=== PATIENT | female | born 1965 | race Caucasian/White ===

== ENCOUNTER 2024-05-31 10:49 | Emergency (ER) | payer MEDICARE, MEDICAID, SELFPAY ==
[2024-05-31 10:50] VITALS: BMI 29.5
[2024-05-31 11:09] VITALS: BP 118/76; PULSE 62; RESP 16; TEMP 36.7; O2SAT 95
--- NOTE | 2024-05-31 11:24 | PD.EDADULT ---
ED General RME/HPI General Chief complaint: Flu Like Symptoms Stated complaint: BAD COUGH CAUSING PRESSURE IN BLADDER, INCONT Time Seen by Provider: 05/31/24 11:06 Source: patient Arrival date/time: 05/31/24 10:49 59-year-old female with no known medical history presents to the emergency room with a chief complaint of urinary incontinence. Patient states that when she coughs she will urinate herself. Patient denies any abdominal pain. Mode of arrival: ambulatory Limitations: no limitations Related Data Home Medications ?Medication ?Instructions ?Recorded ?Confirmed olanzapine 7.5 mg tablet (Zyprexa) 7.5 mg PO HS #0 tabs 09/09/16 08/08/20 aripiprazole 2 mg tablet 5 mg PO QDAY 05/22/20 08/08/20 esomeprazole magnesium 40 mg 40 mg PO QDAY 05/22/20 08/08/20 capsule,delayed release Previous Rx's ?Medication ?Instructions ?Recorded ibuprofen 800 mg tablet 800 mg PO TID PRN pain #30 tabs 06/12/20 Allergies Allergy/AdvReac Type Severity Reaction Status Date / Time amoxicillin Allergy Severe SWELLING/RA Verified 05/31/24 10:53 SH azithromycin Allergy Severe SWELLING Verified 05/31/24 10:53 clavulanic acid Allergy Severe SWELLING/RA Verified 05/31/24 10:53 Past Medical History Past Medical History NEUROLOGIC: Negative Neurological Disorders CARDIAC: Negative Cardiac Disorders or Congestive Heart Failure RESPIRATORY: Positive Chronic Obstructive Pulmonary Disease (COPD); Negative Asthma GASTROINTESTINAL: Positive Gastrointestinal Disorders and Gastroesophageal Reflux Disease GENITOURINARY: Negative Genitourinary Disorders or Renal Disease MUSCULOSKELETAL: Positive Fractures ENT: Positive Cataracts ENDOCRINE: Positive Diabetes Mellitus Type 2 (no meds diet controled); Negative Endocrine Disorders or Diabetes Mellitus Type 1 HEMATOLOGIC: Negative Blood Disorders, Anemia or Sickle Cell Disease PSYCHO/SOCIAL: Positive Schizophrenia, Bipolar Disorder, Depression and Anxiety OTHER HISTORY: Positive Chicken Pox and Measles; Negative Autoimmune Disease or Shingles Family History FAMILY HISTORY: Positive Family Cancer and Family Surgery; Negative Family Psychiatric Problems, Family Respiratory Disorders, Family Cardiac Disorders, Family Gastrointestinal Problems or Family Anesthesia Reaction Surgical History SURGICAL: Positive Tubal Ligation Social History SMOKING STATUS: Current every day smoker SUBSTANCE USE: does not use ED Exam General Limitations: Present no limitations General appearance: Present alert and in no apparent distress Head Head exam: Present atraumatic Eye Eye exam: Present normal appearance, PERRL and EOMI ENT ENT exam: Present normal exam, normal oropharynx and mucous membranes moist Neck Neck exam: Present normal inspection, full ROM and trachea midline Chest Chest inspection: Present normal inspection and symmetric chest wall rise Respiratory Respiratory exam: Present normal lung sounds bilaterally Cardiovascular Cardiovascular exam: Present regular rate, normal rhythm and normal heart sounds Abdominal Exam Abdominal exam: Present soft and normal bowel sounds; Absent distention, tenderness, guarding, rebound or rigidity Extremities Exam Extremities exam: Present normal inspection and full ROM Back Exam Back exam: Present normal inspection and full ROM Neurological Exam Neurological exam: Present alert, oriented X3 and CN II-XII intact Psychiatric Psychiatric exam: Present normal affect and normal mood Skin Skin exam: Present warm, dry, intact and normal color Course Quality Measures none Orders Category Date Time Status CBC Stat Lab 05/31/24 12:35 Completed CMP [Comprehensive Metabolic Panel] Stat Lab 05/31/24 12:35 Completed Hemoglobin A1C [Glycohemoglobin w (eAG)] Stat Lab 05/31/24 12:35 Completed UA, C/S IF [Urinalysis, C/S if Indicated] Stat Lab 05/31/24 12:20 Completed Vital Signs Vital signs: Vital Signs Temperature 98.0 F 05/31/24 11:09 Pulse Rate 62 05/31/24 11:09 Respiratory Rate 16 05/31/24 11:09 Blood Pressure 118/76 05/31/24 11:09 Pulse Oximetry (%) 95 05/31/24 11:09 Oxygen Delivery Method Room Air 05/31/24 11:09 O2 saturation 95% within normal limits [facility] Patient data External records reviewed:: [facility] previous records Clinical information provided by:: patient Social determinants that could affect healthcare access:: none Patient has the following chronic illnesses:: No chronic illness How is presenting disease/condition affected by chronic disease/condition?: no chronic disease Evaluation data The following diagnostics were reviewed and interpreted by me:: lab results and radiology exam(s) Lab and/or radiology exams considered but not ordered:: Labs and radiology exams considered and ordered Interpretation Summary: N/A Medications Medications considered but not ordered:: Medication not given Medication administrations:: Medication not given Consultations Consultation(s) initiated? (list below): No Diagnosis Differential Diagnosis ED Complaint MDM: Urinary incontinence/stress incontinence/urinary tract infection Most likely diagnosis given after review of the tests above:: Stress incontinence Admission Indicated Admission indicated?: not indicated Explain why admission is indicated or not indicated:: N/A Admission Request Was there a request for admission?: No Disposition Plan Disposition Plan: Discharge Discharge Attestation Discharge Attestation: The patient and all family members were given an opportunity to ask questions and understood the discharge instructions. Discharge instructions specifically effects, indications for sooner follow up or return to the emergency department, and the expected course of current diagnosis. Patient condition: Stable Medical Decision Making MDM Narrative MDM Narrative: 59-year-old female with no known medical history presents to the emergency room with a chief complaint of urinary incontinence. Patient states that when she coughs she will urinate herself. Patient denies any abdominal pain. Patient is hemodynamically stable. She is not tachypneic not tachycardic and afebrile Physical examination shows a soft and nontender abdomen. There is active bowel sounds to all 4 quadrants. Patient's lung sounds are clear bilaterally there is no wheezing or any abnormal breath sounds CBC CMP were negative for any acute findings. Urinalysis was negative for any urinary tract infection. Patient was discharged and educated to follow-up with primary care provider in the next 24 to 48 hours and return to the emergency room for any evidence of worsening signs or symptoms Differential Diagnosis Differential Diagnosis: Urinary incontinence/stress incontinence/urinary tract infection Lab Data 05/31/24 12:35 05/31/24 12:35 Labs: Lab Results 05/31/24 05/31/24 Range/Units 12:20 12:35 WBC 5.9 (3.6-11.0) Thou/mm3 RBC 4.87 (4.00-5.20) Miln/mm3 Hgb 14.4 (12.0-16.0) g/dL Hct 43.4 (36.0-46.0) % MCV 89 (80-100) fL MCH 29.6 (25.0-35.0) pg MCHC 33.2 (31.0-37.0) g/dl RDW Std Deviation 39.8 (36.4-46.3) fL Plt Count 203 (140-440) Thou/mm3 Neut % (Auto) 53 (37-80) % Lymph % (Auto) 38 (10-50) % [place] % (Auto) 7 (0-12) % Eos % (Auto) 1 (0-10) % Baso % (Auto) 1 (0-2.5) % Neut # (Auto) 3.1 (1.8-7.7) Thou/mm3 Lymph # (Auto) 2.3 (1.0-4.8) Thou/mm3 [place] # (Auto) 0.4 (0.0-0.8) Thou/mm3 Eos # (Auto) 0.1 (0.0-0.5) Thou/mm3 Baso # (Auto) 0.1 (0.0-0.2) Thou/mm3 Immature Gran # (Auto) 0.01 H (0.00-0.00) Thou/mm3 Absolute Nucleated RBC 0.00 (0.00-0.00) Thou/mm3 Immature Gran % 0 (0-0) % Nucleated RBC % 0 (0) /100 WBC Sodium 144 (136-145) mMol/L Potassium 4.3 (3.4-5.1) mMol/L Chloride 108 H (98-107) mMol/L Carbon Dioxide 30.6 (20.0-31.0) mMol/L Anion Gap 5 L (7-16) BUN 11 (9-23) mg/dL Creatinine 1.0 (0.6-1.3) mg/dL Estim Creat Clear Calc 73.6 (>60) mL/min eGFR > 60 (60 - ) See Note BUN/Creatinine Ratio 11 L (12-20) Ratio Glucose 93 (74-106) mg/dL Estimated Ave Glu mg/dL 117 (80-131) mg/dL Hemoglobin A1c 5.7 (4.8-6.0) % Hgb Calculated Osmolality 286 (275-295) Calcium 10.2 (8.3-10.6) mg/dL Corrected Calcium 10.2 H (8.5-10.1) mg/dL Total Bilirubin 0.5 (0.3-1.2) mg/dL AST 17 (0-34) U/L ALT 8 L (10-49) U/L Alkaline Phosphatase 78 (46-116) U/L Total Protein 7.2 (5.7-8.2) gm/dL Albumin 4.5 (3.5-5.0) gm/dL Globulin 2.7 (2.3-3.5) gm/dL Albumin/Globulin Ratio 1.7 (1.2-2.2) Ur Collection Type Clean Catch Urine Color Yellow (Lt Yel-Yel) Urine Clarity Clear (Clear/Hazy) Urine pH 6.0 (5.0-7.0) Ur Specific [place] 1.030 (1.001-1.035) Urine Protein Trace (Neg - Trace) Urine Glucose (UA) Negative (Negative) Urine Ketones Negative (Negative) Urine Blood Negative (Negative) Urine Nitrite Negative (Negative) Urine Bilirubin Negative (Negative) Urine Urobilinogen (Auto) 2.0 (0.0-1.0) mg/dL Ur Leukocyte Esterase Positive (Negative) Urine RBC 2 (0-3) /hpf Urine WBC 6 H (0-5) /hpf Ur Squamous Epith Cells 3 (0-5) /hpf Urine Bacteria None (None) Ur Culture Indicated? Not Indicated Discharge Plan Plan Patient Disposition: HOME (Self Care) Disposition Comment: Stable Prescriptions/Referrals Prescriptions/Med Rec: No Action olanzapine [Zyprexa] 7.5 MG tablet 7.5 mg PO HS Qty: 0 ibuprofen 800 mg tablet 800 mg PO TID PRN (Reason: pain) Qty: 30 0RF esomeprazole magnesium 40 mg Capsule,Delayed Release(Dr/Ec) 40 mg PO QDAY aripiprazole 2 mg Tablet 5 mg PO QDAY Referrals: Sebastian Marx MD [Primary Care Provider] - In 1 week Problem List Clinical Impression: Female stress incontinence Patient/Caregiver Discharge Instructions Education Materials: Treating Incontinence in Women ... Additional Instructions: Please follow-up with your primary care provider in the next 24 to 48 hours. Your urinalysis and blood work were negative for any acute findings For any evidence of worsening signs or symptoms return to the emergency room immediately Print Language: Kyrgyz Stand Alone Forms: Lizbet Award Info., Patient Portal Info Letter PA/ORE GRADER Supervising Physician PA/HIEU Supervising Physician: Dr Cifuentes
[2024-05-31 12:42] LABS: Basophils # (Auto) 0.1 Thou/mm3 (0.0-0.2); Basophils % (Auto) 1 % (0-2.5); Eosinophils # (Auto) 0.1 Thou/mm3 (0.0-0.5); Eosinophils % (Auto) 1 % (0-10); Hematocrit 43.4 % (36.0-46.0); Hemoglobin 14.4 g/dL (12.0-16.0); Immature Granulocytes % (Auto) 0 % (0-0); Immature Granulocytes Auto 0.01 Thou/mm3 (0.00-0.00); Lymphocytes # (Auto) 2.3 Thou/mm3 (1.0-4.8); Lymphocytes % (Auto) 38 % (10-50); Mean Corpuscular HGB Conc 33.2 g/dl (31.0-37.0); Mean Corpuscular Hemoglobin 29.6 pg (25.0-35.0); Mean Corpuscular Volume 89 fL (80-100); Monocytes # (Auto) 0.4 Thou/mm3 (0.0-0.8); Monocytes % (Auto) 7 % (0-12); Neutrophils # (Auto) 3.1 Thou/mm3 (1.8-7.7); Neutrophils % (Auto) 53 % (37-80); Nucleated Red Blood Cell % 0 /100 WBC (0); Platelet Count 203 Thou/mm3 (140-440); RDW Standard Deviation 39.8 fL (36.4-46.3); Red Blood Count 4.87 Miln/mm3 (4.00-5.20); White Blood Count 5.9 Thou/mm3 (3.6-11.0)
[2024-05-31 12:53] LABS: Glucose Estimated Average 117 mg/dL (80-131); Hemoglobin A1C 5.7 % Hgb (4.8-6.0)
[2024-05-31 12:54] LABS: Collection Type, Urine Clean Catch
[2024-05-31 13:10] LABS: Bilirubin,Urine Negative (Negative); Blood,Urine Negative (Negative); Clarity,Urine Clear (Clear/Hazy); Color,Urine Yellow (Lt Yel-Yel); Culture Indicated,Urine Not Indicated; Glucose, Urine Negative (Negative); Ketones,Urine Negative (Negative); Leukocyte Esterase,Urine Positive (Negative); Nitrite,Urine Negative (Negative); Protein,Urine Trace (Neg - Trace); RBC,Urine 2 /hpf (0-3); Squamous Epithelial Cell,Urine 3 /hpf (0-5); WBC,Urine 6 /hpf (0-5)
[2024-05-31 13:11] LABS: Alanine Aminotransferase 8 U/L (10-49); Albumin, Serum 4.5 gm/dL (3.5-5.0); Albumin/Globulin Ratio 1.7 (1.2-2.2); Alkaline Phosphatase 78 U/L (46-116); Anion Gap 5 (7-16); Aspartate Amino Transferase 17 U/L (0-34); BUN/Creatinine Ratio 11 Ratio (12-20); Bilirubin,Total 0.5 mg/dL (0.3-1.2); Blood Urea Nitrogen 11 mg/dL (9-23); Calcium 10.2 mg/dL (8.3-10.6); Calcium (Corrected) 10.2 mg/dL (8.5-10.1); Carbon Dioxide 30.6 mMol/L (20.0-31.0); Chloride 108 mMol/L (98-107); Estimated Creatinine Clearance 73.6 mL/min (>60); Globulin 2.7 gm/dL (2.3-3.5); Glucose 93 mg/dL (74-106); Osmolality,Calculated 286 (275-295); Potassium 4.3 mMol/L (3.4-5.1); Sodium 144 mMol/L (136-145); Total Protein 7.2 gm/dL (5.7-8.2); eGFR > 60 See Note
== END 2024-05-31 14:43 | disposition home or self-care (01) ==
PROVIDERS: Nurse Practitioner Family; Emergency Provider Emergency Medicine; PCP Family Medicine
DX: N39.3 Stress incontinence (female) (male) (principal)
CPT/HCPCS: 36415; 80053; 81001; 83036; 85025; 99283

== ENCOUNTER → 2024-08-11 | Outpatient (CLI) | payer MEDICARE, MEDICAID, SELFPAY ==
--- NOTE | 2024-08-11 09:01 | XR_ITS ---
Examination: Duplex scan of the lower extremity, unilateral right complete Date and time of exam: August 11, 2024 0913 hours INDICATIONS: Right leg swelling and pain beginning 2 weeks ago Technique: Duplex scan of the extremity veins using B-mode/grayscale imaging and Doppler spectral analysis and color flow Attention is directed to internal echogenicity, compression and augmentation involving these veins, color flow assessment, spectral analysis Findings: Major deep venous structures in the extremity demonstrate normal course and caliber. There is no evidence of deep vein thrombosis. Normal color flow and spectral analysis Impression: Negative for DVT..
== END | disposition home or self-care (01) ==
PROVIDERS: Referring Provider Internal Medicine; Visit Provider Internal Medicine
DX: M13.871 Other specified arthritis, right ankle and foot (principal)
CPT/HCPCS: 93971

== ENCOUNTER 2025-01-15 17:46 | Emergency (ER) | payer MEDICARE, MEDICAID, SELFPAY ==
[2025-01-15 17:47] VITALS: BMI 29.5
[2025-01-15 18:39] VITALS: BP 128/82; PULSE 100; RESP 18; TEMP 36.8; O2SAT 99
--- NOTE | 2025-01-15 19:03 | XR_ITS ---
Examination: CT brain head without contrast. 2-D sagittal coronal reconstructions Date and time of exam: January 15, 2025, 1912 hours, comparison June 26, 2020 INDICATIONS: Syncopal episode today, patient fell with injury to the head, head pain CTDI: vol (mGy): 57 DLP: (mGycm): 1145 Technique: Multiple CT axial sections of the brain have been obtained, 5 mm slice thickness. Contrast has not been administered. 2-D sagittal, coronal reconstructions have been obtained Low dose protocols were performed. One or more of the following dose reduction techniques were used; automated exposure control, adjustment of the mA and/or KV according to patient size, use of iterative reconstruction technique. Findings: No significant ventricular enlargement. Stable encephalomalacia left basal ganglia and left posterior parietal lobe as well as left occipital lobe Intra-axial or extra-axial hemorrhage density is not seen. No mass effect or midline shift Basal cisterns are not remarkable. Fourth ventricle is midline. Cranial vault intact. Impression: No interval acute hemorrhage, mass effect or midline shift As clinically warranted, brain MRI follow-up would best assess for interval acute ischemic change
--- NOTE | 2025-01-15 19:03 | XR_ITS ---
Examination: Knee, right, 3 views Technique: Knee AP, lateral, oblique 3 views Date and time of exam: January 15, 2025, 1927 hours INDICATIONS: Patient fell today with injury to the knee, knee pain. FINDINGS: Faint radiolucency across the upper posterior portion of the patella, clinical correlation advised Femur tibia fibula intact IMPRESSION: Consider CT scan knee follow-up to exclude patellar fracture
--- NOTE | 2025-01-15 19:03 | PD.EDRME ---
Rapid Medical Screening Exam E Arrival date/time: 01/15/25 17:46 59-year-old female reports with complaints of feeling dizzy hitting her head passing out and injuring her knee after a fall today Chief Complaint: Extremity Injury, Lower Time Seen by Provider: 01/15/25 18:58 Vital signs: Vital Signs Temperature 98.2 F 01/15/25 18:39 Pulse Rate 100 01/15/25 18:39 Respiratory Rate 18 01/15/25 18:39 Blood Pressure 128/82 01/15/25 18:39 Pulse Oximetry (%) 99 01/15/25 18:39 Oxygen Delivery Method Room Air 01/15/25 18:39 Exam: ? Clinical Impression: ?
[2025-01-15 21:23] VITALS: BP 125/79; PULSE 76; RESP 19; TEMP 36.8; O2SAT 97
--- NOTE | 2025-01-15 21:54 | PD.EDADULT ---
ED General RME/HPI General Chief complaint: Extremity Injury, Lower Stated complaint: FALL TODAY, RIGHT LEG PAIN AND SWELLING Time Seen by Provider: 01/15/25 18:58 Arrival date/time: 01/15/25 17:46 CC: Syncope and fall, headache, right knee pain HPI patient states she became initially mildly lightheaded and then passed out at [facility] while taking the test. Patient immediately experienced right knee pain patient denies any repeat of this. Prior history of similar event when she was in her 20s . Patient is awake alert oriented nontoxic-appearing not in any acute distress denies any nausea vomiting diplopia seeing spots altered mentation difficulty breathing or chest pain. RME / HPI RME / HPI narrative: 01/15/25 17:46 59-year-old female reports with complaints of feeling dizzy hitting her head passing out and injuring her knee after a fall today Exam: ? Impression: ? Related Data Home Medications ?Medication ?Instructions ?Recorded ?Confirmed olanzapine 7.5 mg tablet (Zyprexa) 7.5 mg PO HS #0 tabs 09/09/16 08/08/20 aripiprazole 2 mg tablet 5 mg PO QDAY 05/22/20 08/08/20 esomeprazole magnesium 40 mg 40 mg PO QDAY 05/22/20 08/08/20 capsule,delayed release Previous Rx's ?Medication ?Instructions ?Recorded ibuprofen 800 mg tablet 800 mg PO TID PRN pain #30 tabs 06/12/20 meloxicam 7.5 mg tablet 7.5 mg PO QDAY #10 tabs 01/15/25 Allergies Allergy/AdvReac Type Severity Reaction Status Date / Time amoxicillin Allergy Severe SWELLING/RA Verified 01/15/25 17:50 azithromycin Allergy Severe SWELLING Verified 01/15/25 17:50 clavulanic acid Allergy Severe SWELLING/RA Verified 01/15/25 17:50 Review of Systems Review of Systems Narrative Review of Systems: GEN: No fever, no chills, no weight loss EYES: No discharge, no visual changes, no pain HEENT: No ear pain, no congestion, no sore throat PULM: No shortness of breath, no cough, no congestion CV: No chest pain, no dyspnea on exertion, no palpitations GI: No nausea, no vomiting, no diarrhea, no pain, no constipation : No frequency, no urgency, no dysuria MUSC/SKEL: + joint pain, no back pain SKIN: No rash PSYCH: No hallucinations, no depression HEME/LYMPH: No easy bleeding or bruising tendencies NEURO: No weakness, no headache Past Medical History Past Medical History NEUROLOGIC: Negative Neurological Disorders CARDIAC: Negative Cardiac Disorders or Congestive Heart Failure RESPIRATORY: Positive Chronic Obstructive Pulmonary Disease (COPD); Negative Asthma GASTROINTESTINAL: Positive Gastrointestinal Disorders and Gastroesophageal Reflux Disease GENITOURINARY: Negative Genitourinary Disorders or Renal Disease MUSCULOSKELETAL: Positive Fractures ENT: Positive Cataracts ENDOCRINE: Positive Diabetes Mellitus Type 2 (no meds diet controled); Negative Endocrine Disorders or Diabetes Mellitus Type 1 HEMATOLOGIC: Negative Blood Disorders, Anemia or Sickle Cell Disease PSYCHO/SOCIAL: Positive Schizophrenia, Bipolar Disorder, Depression and Anxiety OTHER HISTORY: Positive Chicken Pox and Measles; Negative Autoimmune Disease or Shingles Family History FAMILY HISTORY: Positive Family Cancer and Family Surgery; Negative Family Psychiatric Problems, Family Respiratory Disorders, Family Cardiac Disorders, Family Gastrointestinal Problems or Family Anesthesia Reaction Surgical History SURGICAL: Positive Tubal Ligation Social History SMOKING STATUS: Current every day smoker SUBSTANCE USE: does not use ED Exam Narrative Physical exam: [General: Not in any acute distress but in mild discomfort Head normocephalic, no step-offs or hematoma induration crepitus or depression. HEENT: Eyes pupils are PERRLA EOMs are intact mouth pink moist membranes uvula is midline swallow symmetrical phonation is normal. All other subsystems of HEENT are within acceptable limits Neck is supple nontender, full range of motion, flexion extension and rotation no tenderness with palpation cervical spinous process or lateral neck. Swallow symmetrical phonation is normal. Chest equal chest rise nontender to palpation Respiratory: Clear to auscultation no wheezes crackles or rubs CV: Rate rhythm is regular no murmurs rubs or clicks Abdomen is distended secondary to body habitus soft nontender no masses positive bowel sounds all 4 quadrants Back: No CVA tenderness no spinous process tenderness from cervical spine thoracic and lumbar spine Skin: Intact no petechiae rash induration ulceration or crepitus Extremities: Right lower extremity: Knee, tenderness to palpation of the proximal patellar ligament but flexion extension of the leg with pain. No tenderness with palpation of the patella, or the distal portion of the patellar ligament. No gross deformities ecchymosis. Moving all other extremities against resistance cap refill less than 2 seconds neurosensory intact Neuro: Awake alert oriented x3 Glascow coma 15 no focal deficits] Course Quality Measures none Orders Category Date Time Status Crutches .NOW Care 01/15/25 21:53 Active Miscellaneous Nursing Order NOW Care 01/15/25 21:[address] head/brain wo con Stat Exams 01/15/25 19:[address] knee LT wo con Stat Exams 01/15/25 21:47 Ordered XR knee RT 3V Stat Exams 01/15/25 19:03 Completed Vital Signs Vital signs: Vital Signs Temperature 98.2 F 01/15/25 18:39 Pulse Rate 100 01/15/25 18:39 Respiratory Rate 18 01/15/25 18:39 Blood Pressure 128/82 01/15/25 18:39 Pulse Oximetry (%) 99 01/15/25 18:39 Oxygen Delivery Method Room Air 01/15/25 18:39 Discharge Plan Plan Patient Disposition: HOME (Self Care) Patient condition on transfer: Stable Prescriptions/Referrals Prescriptions/Med Rec: New meloxicam 7.5 mg tablet 7.5 mg PO QDAY Qty: 10 0RF No Action olanzapine [Zyprexa] 7.5 MG tablet 7.5 mg PO HS Qty: 0 ibuprofen 800 mg tablet 800 mg PO TID PRN (Reason: pain) Qty: 30 0RF esomeprazole magnesium 40 mg Capsule,Delayed Release(Dr/Ec) 40 mg PO QDAY aripiprazole 2 mg Tablet 5 mg PO QDAY Referrals: No Primary/Family,Physician [Primary Care Provider] - In 1 week Harris Corona MD [Physician, Orthopedics] - In 1 week Problem List Clinical Impression: Contusion of knee, Syncope Patient/Caregiver Discharge Instructions Education Materials: Knee Pain, ED Fainting, Uncertain Cause Additional Instructions: Use the crutches and splint, if there is a worsening of pain in spite of the medications and splint follow-up with the orthopedic doctor or return the emergency room. Print Language: Fijian Stand Alone Forms: Lizbet Award Info., Patient Portal Info Letter, Work/School Release PA/PROSPECTING OBSERVER Supervising Physician PA/PROSPECTING OBSERVER Supervising Physician: Moe Padilla ENP [facility] Clinical Information Provided by: patient Medical Records reviewed [facility] Meds/Rx considered, not ordered None Labs/Rad/Tests considered, not ordered None Chronic Illness/Social Conditions which may negatively complicate care or outcome(s)-explain: None or not applicable EKG EKG not done Labs Labs: none Imaging Imaging interpretation: interpreted by me Imaging Interpretation(s): CT head is negative interpreted by me Knee x-ray shows a faint lucency to the patella but no acute break in the cortex. Diagnosis Differential Diagnosis ED Complaint MDM: Closed head injury tibial plateau fracture patellar fracture
== END 2025-01-15 22:48 | disposition home or self-care (01) ==
PROVIDERS: Emergency Provider Emergency Medicine
DX: S09.90XA Unspecified injury of head, initial encounter (principal); S80.01XA Contusion of right knee, initial encounter; W19.XXXA Unspecified fall, initial encounter
CPT/HCPCS: 70450; 73562; 99283